=== PATIENT | female | born 2000 | race Caucasian/White ===

== ENCOUNTER 2022-07-16 19:16 | Emergency (ER) | payer BC ==
[2022-07-16] MEDS ORDERED: predniSONE 20 MG Tab PO STA (19:30)
== END 2022-07-16 19:45 | disposition home or self-care (01) ==
LOC: CC.ED 19:16
DX: J06.9 Acute upper respiratory infection, unspecified (principal); J45.909 Unspecified asthma, uncomplicated
CPT/HCPCS: 99283; J7512

== ENCOUNTER 2022-09-12 16:23 | Emergency (ER) | payer OTHER, BC ==
[2022-09-12] MEDS ORDERED: Metoclopramide 10 MG/2 ML SDV IVPUSH ONE (16:36)
[2022-09-12] MEDS ORDERED: diphenhydrAMINE 50 MG/ML SDV IVPUSH STA (16:36)
[2022-09-12] MEDS ORDERED: Ketorolac 30 MG/ML SDV IVPUSH ONE (16:36)
[2022-09-12] MEDS ORDERED: Sodium Chloride 0.9% 1,000 ML IV STA (16:36)
[2022-09-12] MEDS ORDERED: Ketorolac 10 MG Tab PO ONE (17:22)
[2022-09-12] MEDS ORDERED: Ondansetron 4 MG Tab.DIS PO ONE (17:22)
[2022-09-12] MEDS ORDERED: Take Home: Ondansetron 4 MG Tab.DIS, 2 Tab Pack PO ONE (17:41)
== END 2022-09-12 17:47 | disposition home or self-care (01) ==
LOC: CC.ED 16:23
DX: S06.0X0A Concussion without loss of consciousness, initial encounter (principal); J45.909 Unspecified asthma, uncomplicated; Z79.899 Other long term (current) drug therapy; W21.03XA Struck by baseball, initial encounter; Y92.219 Unspecified school as the place of occurrence of the external cause; Y99.0 Civilian activity done for income or pay
CPT/HCPCS: 70450; 72125; 99283; 99284; A9270-GY

== ENCOUNTER 2022-09-14 18:51 | Emergency (ER) | payer OTHER, BC ==
[2022-09-14 19:10] LABS: BASOPHILS ABSOLUTE AUTO 0.06 10^3/uL (0.00-0.50); BASOPHILS PERCENT AUTO 0.5 % (0-1); EOSINOPHILS ABSOLUTE AUTO 0.04 10^3/uL (0.00-1.50); EOSINOPHILS PERCENT AUTO 0.3 % (0-6); HEMATOCRIT 37.8 % (37.0-47.0); HEMOGLOBIN 12.4 g/dL (12.0-16.0); IMMATURE GRAN ABSOLUTE AUTO 0.02 10^3/uL (0.00-0.49); IMMATURE GRAN PERCENT AUTO 0.2 % (0.0-4.9); LYMPHOCYTES ABSOLUTE AUTO 2.53 10^3/uL (0.60-5.00); MEAN CORPUSCULAR HEMOGLOBIN 25.7 pg (27.0-32.0); MEAN CORPUSCULAR HGB CONC 32.8 g/dL (32.0-36.0); MEAN CORPUSCULAR VOLUME 78.4 fL (83.0-97.0); MONOCYTES ABSOLUTE AUTO 0.91 10^3/uL (0.00-1.50); MONOCYTES PERCENT AUTO 7.9 % (0-10); NEUTROPHILS ABSOLUTE AUTO 7.94 x10^3/uL (1.80-8.00); NEUTROPHILS PERCENT AUTO 69.1 % (41-71); PLATELET COUNT,PLT 395 10^3/uL (150-400); RED BLOOD CELL COUNT 4.82 x10^6/uL (4.00-5.50); WHITE BLOOD CELL COUNT,WBC 11.5 10^3/uL (4.0-11.0)
[2022-09-14] MEDS: Sodium Chloride 0.9% 1,000 ML IV STA (19:19)
[2022-09-14] MEDS: Ketorolac 30 MG/ML SDV IVPUSH ONE (19:20)
[2022-09-14] MEDS: Metoclopramide 10 MG/2 ML SDV IVPUSH ONE (19:22)
[2022-09-14] MEDS: diphenhydrAMINE 50 MG/ML SDV IVPUSH ONE (19:23)
[2022-09-14 19:27] LABS: ALBUMIN 3.2 g/dL (3.4-5.0); BILIRUBIN TOTAL 0.3 mg/dL (0.0-1.0); CALCIUM 8.4 mg/dL (8.4-10.1); CREATININE 0.9 mg/dL (0.6-1.0); EST CRCL DRUG DOSING (CG) 81.11 mL/min; MAGNESIUM 2.2 mg/dL (1.8-2.4); PROTEIN TOTAL,TP 6.6 g/dL (6.4-8.2)
[2022-09-14] MEDS: Take Home: Ketorolac 10 MG Tab, 4 Tab Pack PO ONE (20:05)
== END 2022-09-14 20:20 | disposition home or self-care (01) ==
LOC: CC.ED 18:51
DX: G44.309 Post-traumatic headache, unspecified, not intractable (principal); R11.0 Nausea; F07.81 Postconcussional syndrome; J45.909 Unspecified asthma, uncomplicated; I10 Essential (primary) hypertension; W22.09XA Striking against other stationary object, initial encounter
CPT/HCPCS: 36415; 80053; 83735; 84484; 85025; 85379; 93010; 96361; 96374; 96375; 99283; 99284; A9270; J1200; J1885; J2765; J7030

== ENCOUNTER 2023-09-29 16:48 | Emergency (ER) | payer OTHER | END 2023-09-29 17:32 | disposition home or self-care (01) | LOC: CC.ED 16:48 | DX: S60.221A Contusion of right hand, initial encounter (principal); Z79.899 Other long term (current) drug therapy; Z90.49 Acquired absence of other specified parts of digestive tract; W22.8XXA Striking against or struck by other objects, initial encounter; Y93.89 Activity, other specified; Y99.0 Civilian activity done for income or pay | CPT/HCPCS: 73130-RT; 99283 ==

== ENCOUNTER 2024-01-06 17:45 | Emergency (ER) | payer BC, OTHER ==
[2024-01-06 18:24] LABS: CORONAVIRUS COVID-19 NAA NEGATIVE (NEGATIVE); INFLUENZA A NAA NEGATIVE (NEGATIVE); INFLUENZA B NAA NEGATIVE (NEGATIVE)
[2024-01-06] MEDS: predniSONE 20 MG Tab PO STA (18:41)
== END 2024-01-06 18:45 | disposition home or self-care (01) ==
LOC: CC.ED 17:45
DX: J06.9 Acute upper respiratory infection, unspecified (principal); Z90.49 Acquired absence of other specified parts of digestive tract; Z79.899 Other long term (current) drug therapy; Z91.018 Allergy to other foods
CPT/HCPCS: 0240U; 99283; 99284; J7512

== ENCOUNTER 2025-04-02 10:00 | Emergency (ER) | payer OTHER | END 2025-04-02 11:00 | disposition home or self-care (01) | LOC: CC.ED 10:00 | DX: S93.401A Sprain of unspecified ligament of right ankle, initial encounter (principal); J45.909 Unspecified asthma, uncomplicated; Z91.018 Allergy to other foods; Z79.899 Other long term (current) drug therapy; X50.1XXA Overexertion from prolonged static or awkward postures, initial encounter; Y93.89 Activity, other specified | CPT/HCPCS: 73610-RT; 99283 ==